=== PATIENT | male | born 1995 | race American Indian/Alaskan Native ===

== ENCOUNTER 2021-07-16 17:30 | Emergency (ER) | payer MEDICAID | END 2021-07-16 18:41 | disposition home or self-care (01) | LOC: DL.ED 17:30 | DX: M25.572 Pain in left ankle and joints of left foot (principal); M25.472 Effusion, left ankle; Z72.0 Tobacco use | CPT/HCPCS: 73610-LT; 99283 ==

== ENCOUNTER 2022-12-26 02:03 | Observation (INO) | payer SELFPAY ==
[2022-12-26] MEDS ORDERED: Sodium Chloride 0.9% 10 ML Syringe FLUSH PRN (02:12)
[2022-12-26 02:34] LABS: BASOPHILS PERCENT AUTO 0.5 % (0.0-1.0); EOSINOPHILS PERCENT AUTO 1.7 % (1.0-3.0); HEMATOCRIT 44.2 % (40.0-54.0); HEMOGLOBIN 15.3 g/dL (14.0-18.0); LYMPHOCYTES PERCENT AUTO 28.5 % (20.5-50.1); MEAN CORPUSCULAR HEMOGLOBIN 31.8 pg (27.0-34.0); MEAN CORPUSCULAR HGB CONC 34.6 g/dL (33.0-35.0); MEAN CORPUSCULAR VOLUME 91.9 fL (80-100); MONOCYTES PERCENT AUTO 9.8 % (2-8); NEUTROPHILS PERCENT AUTO 59.5 % (42.2-75.2); PLATELET COUNT,PLT 337 10^3/uL (150-450); RED BLOOD CELL COUNT 4.81 10^6/uL (4.6-6.2)
[2022-12-26 03:12] LABS: ALANINE AMINOTRANSFERASE,ALT 59 U/L (16-63); ALBUMIN 3.9 g/dL (3.4-5.0); ALKALINE PHOSPHATASE 112 U/L (46-116); ANION GAP 15.8 mEq/L (7-13); ASPARTATE AMNIOTRANSFERASE,AST 71 U/L (15-37); BILIRUBIN TOTAL 0.4 mg/dL (0.2-1.0); BLOOD UREA NITROGEN,BUN 10 mg/dL (7-18); BUN/CREATININE RATIO 10.5 (No establ ref range); CALCIUM 8.6 mg/dL (8.5-10.1); CARBON DIOXIDE,CO2 24 mmol/L (21-32); CHLORIDE,CL 104 mmol/L (98-107); CREATININE 0.95 mg/dL (0.70-1.30); ETHANOL BLOOD MEDICAL 150 mg/dL (0); GLUCOSE RANDOM 97 mg/dL (70-99); POTASSIUM,K 4.8 mmol/L (3.5-5.1); PROTEIN TOTAL,TP 7.9 g/dL (6.4-8.2); SODIUM,NA 139 mmol/L (136-145)
[2022-12-26 03:20] LABS: ESTIMATED GFR 111 mL/min (>=60)
[2022-12-26] MEDS ORDERED: Acetaminophen 325 MG Tab PO PRN (04:48)
[2022-12-26] MEDS ORDERED: Benzocaine/Cetylpyridinium/Menthol Lozenge MUCMEM PRN (08:10)
[2022-12-26] MEDS ORDERED: LORazepam 2 MG/ML SDV IV PRN (08:10)
[2022-12-26] MEDS ORDERED: LORazepam 0.5 MG Tab PO PRN (08:10)
[2022-12-26] MEDS: Nicotine 14 MG/24 Hr Patch TRDERM SCH (09:23)
[2022-12-26] MEDS: Ibuprofen 600 MG Tab PO PRN ×2 (09:24→16:15)
[2022-12-26 12:48] LABS: AMPHETAMINES,URINE POSITIVE (NEGATIVE); METHAMPHETAMINES,URINE POSITIVE (NEGATIVE)
[2022-12-26 12:49] LABS: BARBITURATES,URINE NEGATIVE (NEGATIVE); BENZODIAZEPINE,URINE NEGATIVE (NEGATIVE); MDMA (ECSTASY), URINE NEGATIVE (NEGATIVE); METHADONE,URINE NEGATIVE (NEGATIVE); OPIATES,URINE NEGATIVE (NEGATIVE); OXYCODONE,URINE NEGATIVE (NEGATIVE); PHENCYCLIDINE,URINE NEGATIVE (NEGATIVE); TCA,URINE NEGATIVE (NEGATIVE)
[2022-12-27] MEDS: Nicotine 14 MG/24 Hr Patch TRDERM SCH (08:45)
== END 2022-12-27 09:17 ==
LOC: DL.ED 02:03 → DL.MS 04:48 → UNDOADMOB 04:48 → DL.ED 04:52 → UNDODISOB 12-27 09:17
PROVIDERS: ADMIT Family Medicine; ATTEND Family Medicine
DX: T71.162A Asphyxiation due to hanging, intentional self-harm, initial encounter (principal); S10.91XA Abrasion of unspecified part of neck, initial encounter; Z20.822 Contact with and (suspected) exposure to COVID-19; F32.A Depression, unspecified; F17.210 Nicotine dependence, cigarettes, uncomplicated; F10.129 Alcohol abuse with intoxication, unspecified; F19.10 Other psychoactive substance abuse, uncomplicated; Y90.6 Blood alcohol level of 120-199 mg/100 ml; Z68.23 Body mass index [BMI] 23.0-23.9, adult; X58.XXXA Exposure to other specified factors, initial encounter
CPT/HCPCS: 36415; 70450; 71045; 72125; 80053; 80143; 80179; 80305; 80307; 85025; 87635; 93005; 99285; A9270; J3490; U0002

== ENCOUNTER 2024-03-25 14:43 | Emergency (ER) | payer SELFPAY ==
[2024-03-25] MEDS: Acetaminophen 500 MG Tab PO ONE (15:10)
[2024-03-25] MEDS: Lidocaine 5% 700 MG Patch TOP ONE (15:11)
== END 2024-03-25 15:23 | disposition home or self-care (01) ==
LOC: DL.ED 14:43
DX: M54.6 Pain in thoracic spine (principal); R07.81 Pleurodynia; F10.10 Alcohol abuse, uncomplicated; F17.210 Nicotine dependence, cigarettes, uncomplicated; W01.0XXA Fall on same level from slipping, tripping and stumbling without subsequent striking against object, initial encounter
CPT/HCPCS: 99283; A9270

== ENCOUNTER 2024-04-07 23:25 | Emergency (ER) | payer SELFPAY ==
[2024-04-07 23:51] LABS: BASOPHILS PERCENT AUTO 0.4 % (0.0-1.0); EOSINOPHILS PERCENT AUTO 1.8 % (1.0-3.0); HEMATOCRIT 48.6 % (40.0-54.0); HEMOGLOBIN 16.6 g/dL (14.0-18.0); LYMPHOCYTES PERCENT AUTO 22.9 % (20.5-50.1); MEAN CORPUSCULAR HEMOGLOBIN 31.9 pg (27.0-34.0); MEAN CORPUSCULAR HGB CONC 34.2 g/dL (33.0-35.0); MEAN CORPUSCULAR VOLUME 93.5 fL (80-100); MONOCYTES PERCENT AUTO 7.3 % (2-8); NEUTROPHILS PERCENT AUTO 67.6 % (42.2-75.2); PLATELET COUNT,PLT 385 10^3/uL (150-450); WHITE BLOOD CELL COUNT,WBC 9.6 10^3/uL (5.0-10.0)
[2024-04-08 00:12] LABS: ALBUMIN 3.3 g/dL (3.4-5.0); BILIRUBIN TOTAL 0.3 mg/dL (0.2-1.0); BUN/CREATININE RATIO 10.5 (No establ ref range); CALCIUM 8.9 mg/dL (8.5-10.1); CREATININE 0.86 mg/dL (0.70-1.30); EST CRCL DRUG DOSING (CG) 108.26 mL/min; PROTEIN TOTAL,TP 7.4 g/dL (6.4-8.2)
[2024-04-08 00:14] LABS: A/G RATIO 0.8
[2024-04-08] MEDS: Proparacaine 0.5% Ophth Soln 15 ML Bottle EYERT ONE (00:14)
[2024-04-08] MEDS: Lidocaine 1% with EPINEPHrine 1:100,000 20 ML MDV ONE (00:15)
[2024-04-08] MEDS: Sodium Chloride 0.9% 1,000 ML IV ONE (00:15)
[2024-04-08] MEDS: Iopamidol 612 MG/ML 100 ML Bottle IVPUSH ONE (02:03)
[2024-04-08] MEDS: Fluorescein 1 MG Ophth Strip ONE (03:12)
[2024-04-08] MEDS: ceFAZolin 1 GM Vial IVPUSH ONE (03:13)
== END 2024-04-08 02:44 ==
LOC: DL.ED 23:25
DX: S02.19XA Other fracture of base of skull, initial encounter for closed fracture (principal); S61.412A Laceration without foreign body of left hand, initial encounter; F10.120 Alcohol abuse with intoxication, uncomplicated; Y90.8 Blood alcohol level of 240 mg/100 ml or more; Y04.8XXA Assault by other bodily force, initial encounter
CPT/HCPCS: 12001; 36415; 70450; 70486; 71045; 71260; 72125; 73130; 74177; 80053; 80307; 83690; 84443; 84484; 85025; 96360; 99285; J7030; Q9967; J3490

== ENCOUNTER 2024-12-03 02:33 | Emergency (ER) | payer SELFPAY ==
[2024-12-03] MEDS: Ketamine 500 mg/10 ML MDV IV ONE (02:40)
[2024-12-03] MEDS: Midazolam 1 MG/ML 2 ML SDV IVPUSH ONE ×2 (03:29→03:30)
[2024-12-03] MEDS: Midazolam 1 MG/ML 2 ML SDV ONE (03:30)
[2024-12-03] MEDS: Ketamine 500 mg/10 ML MDV ONE (03:40)
[2024-12-03] MEDS: Diphtheria,Pertussis(Acell),Tetanus Vaccine 0.5 ML Syringe IM ONE (04:05)
== END 2024-12-03 06:34 | disposition home or self-care (01) ==
LOC: DL.ED 02:33
DX: S61.511A Laceration without foreign body of right wrist, initial encounter (principal); W19.XXXA Unspecified fall, initial encounter; Z23 Encounter for immunization
CPT/HCPCS: 12001; 70450; 72125; 90471; 90715; 96374; 96375; 99284; J2250; J3490